=== PATIENT | female | born 1930 | race Caucasian/White ===

== ENCOUNTER 2018-03-20 15:08 | Emergency (ER) | payer MEDICARE, BC ==
[~2018-03-20] VITALS: Ht 160 cm; Wt 54.0 kg
[2018-03-20 15:20] VITALS: BP 125/42; PULSE 92; RESP 16; TEMP 97.9; O2SAT 97
--- NOTE | 2018-03-20 15:33 | PD ---
HPI Chief Complaint: Head Injury Time Seen by Provider: 15:24 Travel History International Travel<30 days: No Contact w/Intl Traveler<30days: No Traveled to known affect area: No History of Present Illness HPI 87-year-old female presents to the emergency department with her son for evaluation after a fall that occurred today. Patient has history of vascular dementia and has short-term memory loss. Patient lives in an [place]. Her son states that the fall was not witnessed. The patient cannot elaborate on how the fall happened. She does have history of gait instability and weakness. Patient believes she lost her balance and fell, but cannot give any details surrounding her fall. Patient has hematoma to the left forehead. She denies any headache. No neck pain or back pain. No chest pain or abdominal pain. No vomiting. Her son states that she is not on anticoagulants. She is currently on Bactrim for urinary tract infection. Her son at bedside states that she is acting her normal self. Patient knows the president, her name, and that she is at the hospital, but cannot recall the year or month. Patient states that this is her norm. She has been ambulatory with her walker since the fall. No exacerbating or alleviating factors. Moderate severity. PFSH Past Medical History ?: Not Social History Alcohol Use: No Tobacco Use: No Substance Use: No Allergies-Medications (Allergen,Severity, Reaction): Coded Allergies: No Known Allergies (Verified Allergy, Unknown, 03/20/18) Reported Meds & Prescriptions Reported Meds & Active Scripts Active Reported Cyanocobalamin Inj (Cyanocobalamin) 1,000 Mcg/Ml Inj 1,000 Mcg SQ Q30D Lipitor (Atorvastatin Calcium) 40 Mg Tab 40 Mg PO HS Vitamin B-12 (Cyanocobalamin) 1,000 Mcg Tab 1,000 Mcg PO DAILY Ritalin IR (Methylphenidate HCl) 20 Mg Tab 20 Mg PO BIDAC Cozaar (Losartan Potassium) 50 Mg Tab 50 Mg PO DAILY Bactrim DS (Sulfamethoxazole-Trimethoprim) 800-160 Mg Tab 1 Tab PO BID Aspirin 81 Mg Chew 81 Mg CHEW DAILY Review of Systems Except as stated in HPI: all other systems reviewed are Neg Physical Exam Narrative GENERAL: Well-nourished, well-developed elderly female patient, ambulatory with her walker. Afebrile. SKIN: Focused skin assessment warm/dry. Patient has hematoma to left forehead. HEAD: Normocephalic. ENT: Mucosa pink and moist. No erythema or exudates. No uvular edema. No uvular , palatal, or tonsillar deviation. Airway patent. Nasal turbinates appear normal without nasal blood, purulent drainage or septal hematoma. Bilateral tympanic membranes clear without erythema or perforation. EYES: No scleral icterus. No injection or drainage. PERRLA. NECK: Supple, trachea midline. No JVD or lymphadenopathy. CARDIOVASCULAR: Regular rate and rhythm without murmurs, gallops, or rubs. RESPIRATORY: Breath sounds equal bilaterally. No accessory muscle use. Lung sounds are clear to auscultation. GASTROINTESTINAL: Abdomen soft, non-tender, nondistended. MUSCULOSKELETAL: No cyanosis, or edema. No bony point tenderness. BACK: Nontender without obvious deformity. No CVA tenderness. No midline spinal tenderness. Data Data Last Documented VS Vital Signs Date Time Temp Pulse Resp B/P (MAP) Pulse Ox O2 Delivery O2 Flow Rate FiO2 03/20/18 15:57 97 Room Air 03/20/18 15:20 97.9 92 16 125/42 (69) Orders Orders Complete Blood Count With Diff (03/20/18 15:32) Comprehensive Metabolic Panel (03/20/18 15:32) Act Partial Throm Time (Ptt) (03/20/18 15:32) Prothrombin Time / Inr (Pt) (03/20/18 15:32) Urinalysis - C+S If Indicated (03/20/18 15:32) Ct Brain W/O Iv Contrast(Rout) (03/20/18 15:32) Ecg Monitoring (03/20/18 15:32) Iv Access Insert/Monitor (03/20/18 15:32) Oximetry (03/20/18 15:32) Sodium Chloride 0.9% Flush (Ns Flush) (03/20/18 15:45) Labs Laboratory Tests Test 03/20/18 16:10 03/20/18 16:15 White Blood Count 9.1 TH/MM3 Red Blood Count 4.05 MIL/MM3 Hemoglobin 12.7 GM/DL Hematocrit 36.9 % Mean Corpuscular Volume 91.2 FL Mean Corpuscular Hemoglobin 31.3 PG Mean Corpuscular Hemoglobin Concent 34.3 % Red Cell Distribution Width 13.5 % Platelet Count 241 TH/MM3 Mean Platelet Volume 8.8 FL Neutrophils (%) (Auto) 79.3 % Lymphocytes (%) (Auto) 14.5 % Monocytes (%) (Auto) 4.2 % Eosinophils (%) (Auto) 1.4 % Basophils (%) (Auto) 0.6 % Neutrophils # (Auto) 7.2 TH/MM3 Lymphocytes # (Auto) 1.3 TH/MM3 Monocytes # (Auto) 0.4 TH/MM3 Eosinophils # (Auto) 0.1 TH/MM3 Basophils # (Auto) 0.1 TH/MM3 CBC Comment DIFF FINAL Differential Comment Prothrombin Time 10.4 SEC Prothromb Time International Ratio 1.0 RATIO Activated Partial Thromboplast Time 23.7 SEC Blood Urea Nitrogen 23 MG/DL Creatinine 1.40 MG/DL Random Glucose 113 MG/DL Total Protein 6.7 GM/DL Albumin 3.2 GM/DL Calcium Level 8.7 MG/DL Alkaline Phosphatase 140 U/L Aspartate Amino Transf (AST/SGOT) 33 U/L Alanine Aminotransferase (ALT/SGPT) 53 U/L Total Bilirubin 0.3 MG/DL Sodium Level 141 MEQ/L Potassium Level 4.7 MEQ/L Chloride Level 108 MEQ/L Carbon Dioxide Level 26.5 MEQ/L Anion Gap 7 MEQ/L Estimat Glomerular Filtration Rate 36 ML/MIN Urine Collection Type CLEAN CATCH Urine Color YELLOW Urine Turbidity SL CLOUDY Urine pH 5.5 Urine Specific [place] GREATER/EQUAL 1.030 Urine Protein NEG mg/dL Urine Glucose (UA) NEG mg/dL Urine Ketones NEG mg/dL Urine Occult Blood TRACE Urine Nitrite NEG Urine Bilirubin NEG Urine Urobilinogen 0.2 MG/DL Urine Leukocyte Esterase NEG Urine RBC 4-9 /hpf Urine WBC 0-2 /hpf Urine Squamous Epithelial Cells > 8 /hpf Urine Bacteria FEW /hpf Microscopic Urinalysis Comment CULT NOT INDICATED Urine Collection Time 16:15 [facility] Medical Decision Making Medical Screen Exam Complete: Yes Emergency Medical Condition: Yes Medical Record Reviewed: Yes Interpretation(s) Last Impressions Head CT 03/20/18 4593 Signed Impressions: Service Date/Time: Thursday, March 20, 2018 15:54 - CONCLUSION: 1. No acute intracranial abnormality. 2. Left frontal scalp swelling. 3. Suspected small vessel ischemic change in the white matter. A Guy Merrill MD Differential Diagnosis Closed head injury versus intracranial hemorrhage versus skull fracture versus electrolyte abnormality versus UTI Narrative Course 87-year-old female presents to the emergency department for evaluation of a fall that occurred today. The fall was not witnessed and patient cannot recall details surrounding the fall. However, patient does have history of gait instability. IV access is obtained. CBC, CMP, PTT, PT/INR, UA ordered and pending. CT the brain is ordered and pending. CBC shows no acute abnormality. CMP shows BUN 23, creatinine 1.40, hyperglycemia 113, no acute abnormality. Coags show no acute abnormality. UA is negative for acute infection. CT the brain shows no acute intracranial abnormality. Patient stable for discharge back to her [facility]. She is return for any acute worsening of symptoms. The patient was discharged in stable condition with instructions, including return instructions and follow up instructions. Diagnosis Primary Impression: Closed head injury Qualified Codes: S09.90XA - Unspecified injury of head, initial encounter Referrals: Primary Care Physician call for appointment Patient Instructions: General Instructions, Head Injury (ED) Additional Instructions: [id number] Tylenol every 4 hours as needed for pain. Ice to forehead for 20 minutes 4-5 times daily. Follow-up with a primary care physician. Return to the emergency department for any acute worsening of symptoms. Med/Other Pt SpecificInfo: No Change to Meds Disposition: 01 DISCHARGE HOME Condition: Stable Анна Garay Mar 20, 2018 15:33
[2018-03-20] MEDS ORDERED: SODIUM CHLORIDE 0.9% FLUSH 10 ML FLUSH IVF PRN (15:45)
[2018-03-20] MEDS ORDERED: BACT800T5 PO (15:53)
[2018-03-20] MEDS ORDERED: RITA20TA PO (15:53)
[2018-03-20] MEDS ORDERED: ASPI-516 CHEW (15:53)
[2018-03-20] MEDS ORDERED: COZA50TA PO (15:53)
[2018-03-20] MEDS ORDERED: CYAN1000P SQ (15:56)
[2018-03-20] MEDS ORDERED: VITA10002 PO (15:56)
[2018-03-20] MEDS ORDERED: LIPI40TA PO (15:56)
[2018-03-20 15:57] VITALS: O2SAT 97
[2018-03-20 16:31] LABS: AUTOMATED NEUTROPHIL # 7.2 TH/MM3 (1.8-7.7); BASOPHIL # 0.1 TH/MM3 (0-0.2); BASOPHIL % 0.6 % (0.0-2.0); EOSINOPHIL # 0.1 TH/MM3 (0-0.4); EOSINOPHIL % 1.4 % (0.0-4.0); HEMATOCRIT 36.9 % (35.0-46.0); HEMOGLOBIN 12.7 GM/DL (11.6-15.3); LYMPH % 14.5 % (9.0-44.0); LYMPHOCYTE # 1.3 TH/MM3 (1.0-4.8); MEAN CELL VOLUME 91.2 FL (80.0-100.0); MEAN CORPUSCULAR HEMOGLOBIN 31.3 PG (27.0-34.0); MEAN CORPUSCULAR HGB CONC 34.3 % (32.0-36.0); MEAN PLATELET VOLUME 8.8 FL (7.0-11.0); MONO % 4.2 % (0.0-8.0); MONOCYTE # 0.4 TH/MM3 (0-0.9); NEUT % 79.3 % (16.0-70.0); PLATELET COUNT 241 TH/MM3 (150-450); RED BLOOD COUNT 4.05 MIL/MM3 (4.00-5.30); RED CELL DISTRIBUTION WIDTH 13.5 % (11.6-17.2); WHITE BLOOD COUNT 9.1 TH/MM3 (4.0-11.0)
--- NOTE | 2018-03-20 16:34 | RADRPT ---
EXAM DATE/TIME: 03/20/2018 15:54 [facility] COMPARISON: No previous studies available for comparison. INDICATIONS : Fall with bruising left forhead. RADIATION DOSE: 43.78 CTDIvol (mGy) MEDICAL HISTORY : Dementia. SURGICAL HISTORY : None. ENCOUNTER: Initial ACUITY: 1 day PAIN SCALE: 5/10 LOCATION: Right cranial TECHNIQUE: Multiple contiguous axial images were obtained of the head. Using automated exposure control and adj ustment of the mA and/or kV according to patient size, radiation dose was kept as low as reasonably a chievable to obtain optimal diagnostic quality images. DICOM format image data is available electro nically for review and comparison. FINDINGS: CEREBRUM: The ventricles are normal for age. No evidence of midline shift, mass lesion, hemorrhage or acute in farction. There is decreased density in the periventricular white matter. No extra-axial fluid collec tions are seen. POSTERIOR FOSSA: The cerebellum and brainstem are intact. The 4th ventricle is midline. The cerebellopontine angle i s unremarkable. EXTRACRANIAL: The visualized portion of the orbits is intact. SKULL: The calvaria is intact. No evidence of skull fracture. There is focal soft tissue swelling in the le ft frontal scalp region. CONCLUSION: 1. No acute intracranial abnormality. 2. Left frontal scalp swelling. 3. Suspected small vessel ischemic change in the white matter. Meg Merrill MD on March 20, 2018 at 16:25 Board Certified Radiologist. This report was verified electronically.
[2018-03-20 16:40] LABS: CHLORIDE 108 MEQ/L (98-107); SODIUM (NA) 141 MEQ/L (136-145)
[2018-03-20 16:43] LABS: CALCIUM 8.7 MG/DL (8.5-10.1)
[2018-03-20 16:43] LABS: BILIRUBIN, URINE NEG (NEG); BLOOD, URINE TRACE (NEG); GLUCOSE,URINE NEG (NEG); KETONE, URINE NEG (NEG); NITRITE,URINE NEG (NEG); PH, URINE 5.5 (5.0-8.5); URINE COLOR YELLOW (YELLW/STRAW); URINE LEUKOCYTE ESTERASE NEG (NEG)
[2018-03-20 16:44] LABS: ALBUMIN 3.2 GM/DL (3.4-5.0); BICARBONATE 26.5 MEQ/L (21.0-32.0); BLOOD UREA NITROGEN 23 MG/DL (7-18); GLUCOSE,RANDOM 113 MG/DL (74-106)
[2018-03-20 16:46] LABS: ALT (GPT) 53 U/L (10-53); PROTHROMBIN TIME - PATIENT 10.4 SEC (9.8-11.6)
[2018-03-20 16:47] LABS: AST (GOT) 33 U/L (15-37); GLOMERULAR FILTRATION RATE 36 ML/MIN (>89)
[2018-03-20 16:48] LABS: TOTAL BILIRUBIN ADULT 0.3 MG/DL (0.2-1.0); TOTAL PROTEIN 6.7 GM/DL (6.4-8.2)
[2018-03-20 16:50] LABS: ALKALINE PHOSPHATASE 140 U/L (45-117)
[2018-03-20 16:55] LABS: BACTERIA, URINE FEW /hpf; SQUAMOUS EPITHELIAL CELL URINE > 8 /hpf (0-5); WBC, URINE 0-2 /hpf (0-5)
== END 2018-03-20 17:29 | disposition home or self-care (01) ==
LOC: PHEFT 15:08
DX: S09.90XA Unspecified injury of head, initial encounter (principal); S00.83XA Contusion of other part of head, initial encounter; W19.XXXA Unspecified fall, initial encounter; Y92.099 Unspecified place in other non-institutional residence as the place of occurrence of the external cause; N39.0 Urinary tract infection, site not specified; F01.50 Vascular dementia, unspecified severity, without behavioral disturbance, psychotic disturbance, mood disturbance, and anxiety; R26.81 Unsteadiness on feet
CPT/HCPCS: 70450; 80053; 81001; 85025; 85610; 85730; 99283

== ENCOUNTER 2018-07-17 20:57 | Observation (INO) ==
--- NOTE | 2018-07-17 21:23 | ED ---
HPI General Chief Complaint: Syncope Stated Complaint: Evac/[facility]/Syncope Time Seen by Provider: 07/17/18 21:10 Source: EMS Mode of arrival: EMS Limitations: no limitations History of Present Illness HPI narrative: 88-year-old female presents to the emergency department from assisted living facility by EMS transport after witnessed syncopal episode. Patient has been in her usual state of fair health with history of hypertension and vascular dementia. Patient was with assisted-living facility nursing staff receiving a shower and during the shower collapsed with a syncopal episode without associated trauma. Patient was assisted to the floor and was unresponsive but breathing with pulse for approximately 4-5 minutes during which time she was noted to have 2 watery loose brown diarrheal stools and no seizure activity. Patient was moved from the shower to her bed where paramedics found her with decreased level of responsiveness and hypotensive with a blood pressure of 70 systolic. Patient was found to be in a sinus rhythm on monitoring blood sugar was 118. No seizure activity witnessed. Patient was given a bolus of normal saline with improved level of mentation and upon arrival to the emergency department GCS is 15. Patient here denies headache visual disturbance difficulty with speech or swallowing neck pain chest pain shortness of breath nausea abdominal pain back pain upper or lower extremity numbness tingling or weakness. Per paramedics [place] reported no recent illness or febrile illness. Patient is currently not taking any antibiotic. Patient did not have diarrhea prior to syncopal episode. Patient's had no GI complaints no nausea or vomiting. Patient's had no other symptoms such as respiratory illness symptoms or urinary symptoms. No prior history of similar episode. No identified exacerbating or alleviating factors. MD complaint: loss of consciousness and collapsed Onset (ago): minute(s) Duration of episode: 5 -: minutes(s) Description of event: incontinence Prodromal symptoms: none Witnessed: yes - by bystander Context: during exertion (showering) Injuries sustained associated with event: none Current symptoms: none and back to baseline History: other (Hypertension dementia) Treatments prior to arrival: IV fluids Related Data Home Medications Medication Instructions Recorded Confirmed aspirin [Aspirin Low Dose] 81 mg PO DAILY 07/17/18 07/17/18 atorvastatin [Lipitor] 40 mg PO DAILY 07/17/18 07/17/18 cyanocobalamin (vitamin B-12) 1,000 mcg PO DAILY 07/17/18 07/17/18 [Vitamin B-12] losartan [Cozaar] 50 mg PO DAILY 07/17/18 07/17/18 methylphenidate HCl [Ritalin] 20 mg PO BID 07/17/18 07/17/18 Allergies Allergy/AdvReac Type Severity Reaction Status Date / Time No Known Allergies Allergy Unknown NONE Uncoded 07/17/18 21:03 Review of Systems ROS: all other systems reviewed are negative [facility] Medical History Medical History Cardiovascular disease (Acute) High cholesterol (Acute) Hypertension (Acute) Urinary tract infection (Acute) Vascular dementia (Acute) Surgical History Surgical History History of appendectomy (Acute) Social History Social History Substance History: No History of Abuse Smoking Status: Former smoker How Often Do You Have a Drink Containing Alcohol: Never Recent Travel in [facility] within the Last 8 Weeks: No Recent Out of Country Travel within the Last 8 Weeks: No Immunization History Tetanus Immunization: Unsure Hx Influenza Vaccine This Season: Yes Exam Narrative Exam Narrative: GENERAL: Well-developed well-nourished elderly thin female in no acute distress no respiratory distress awake GCS 15 SKIN: Focused skin assessment warm/dry. HEAD: Atraumatic. Normocephalic. EYES: Pupils equal and round. No scleral icterus. No injection or drainage. ENT: No nasal bleeding or discharge. Mucous membranes pink and moist. NECK: Trachea midline. No JVD. CARDIOVASCULAR: Regular rate and rhythm. No murmur appreciated. RESPIRATORY: No accessory muscle use. Clear to auscultation. Breath sounds equal bilaterally. GASTROINTESTINAL: Abdomen soft, non-tender, nondistended. Hepatic and splenic margins not palpable. MUSCULOSKELETAL: No obvious deformities. No clubbing. No cyanosis. No edema. NEUROLOGICAL: Awake and alert. No obvious cranial nerve deficits. Motor grossly within normal limits. No limb ataxia. No pronator drift. Sensory exam grossly intact. Normal speech. PSYCHIATRIC: Appropriate mood and affect; insight and judgment normal. Course Initial Documented Vital Signs Pulse Rate 83 07/17/18 21:04 Respiratory Rate 16 07/17/18 21:04 Blood Pressure 139/78 07/17/18 21:04 Pulse Oximetry 98 07/17/18 21:04 Last Documented Vital Signs Temperature 97.6 F 07/17/18 21:10 Pulse Rate 70 07/17/18 23:13 Respiratory Rate 16 07/17/18 23:13 Blood Pressure 145/66 H 07/17/18 23:13 Pulse Oximetry 97 07/17/18 23:13 Critical Care Time Critical Care Time: Yes Total Critical Care Time: 30 Attestation: Aggregate critical care time was 30 minutes. Time to perform other separately billable procedures was not included in the critical care time. My time did not include minutes spent treating any other patients simultaneously or on activities that did not directly contribute to the patient's treatment. The services I provided to this patient were to treat and/or prevent clinically significant deterioration that could result in: Arrhythmia, sepsis, I provided critical care services requiring my management, as noted below: Chart data review, documentation time, medication orders and management, vital sign assessments/reviewing monitor data, ordering and reviewing lab tests, ordering and interpreting/reviewing x-rays and diagnostic studies, care of the patient and discussion of the patient with the admitting physicians. Medical Decision Making MDM Narrative Medical decision making narrative: 88-year-old female with history of hypertension dyslipidemia dementia with witnessed syncopal episode approximately 5 minutes of duration without seizure activity presents now for further evaluation with EMS glucose of 118 initial blood pressure 70 systolic now within normal range after 1500 mL bolus of normal saline. EKG is sinus rhythm rate [address] elevation injury pattern or ectopy artifact is present at baseline CT imaging reveals no acute abnormality chest x-ray no lobar infiltrate EKG no acute injury pattern cardiac enzymes are found to be in normal range patient is identified to have elevated lactic acid of three-point 5 repeat lactic acid pending patient given additional bolus of normal saline and after blood cultures presumptive IV antibiotic with cefepime urinalysis catheterized specimen cultures not indicated few bacteria otherwise normal. Patient will be admitted for observation to medicine service per Dr. Pickens for syncope of unclear etiology. Per family patient is a DNR, this is shared with the admitting MD. Medical Screen Exam Complete: Yes Emergency Medical Condition: Yes Differential Diagnosis Differential Diagnosis: Syncope, arrhythmia, CVA, ACS, RI, CVA, sepsis, anemia Medical Records Medical records reviewed: Yes I reviewed the patient's medical records. Lab Data Result diagrams: 07/17/18 21:15 07/17/18 21:15 Lab Results 07/17/18 07/17/18 07/17/18 Range/Units 21:15 21:15 21:15 WBC 8.9 (4.0-11.0) th/mm3 RBC 4.42 (4.00-5.30) mil/mm3 Hgb 13.5 (11.6-15.3) gm/dL Hct 41.1 (35.0-46.0) % MCV 93.0 (80.0-100.0) fL MCH 30.6 (27.0-34.0) pg MCHC 32.9 (32.0-36.0) % RDW 13.3 (11.6-17.2) % Plt Count 204 (150-450) th/mm3 MPV 8.5 (7.0-11.0) fL Neut % (Auto) 77.5 H (16.0-70.0) % Lymph % (Auto) 13.2 (9.0-44.0) % [place] % (Auto) 6.2 (0.0-8.0) % Eos % (Auto) 2.5 (0.0-4.0) % Baso % (Auto) 0.6 (0.0-2.0) % Neut # (Auto) 6.9 (1.8-7.7) th/mm3 Lymph # (Auto) 1.2 (1.0-4.8) th/mm3 [place] # (Auto) 0.6 (0.0-0.9) th/mm3 Eos # (Auto) 0.2 (0.0-0.4) th/mm3 Baso # (Auto) 0.1 (0.0-0.2) th/mm3 WBC Differential . Differential Comment Auto diff final PT 11.2 (9.8-11.6) sec INR 1.1 Ratio APTT 24.8 (24.3-30.1) sec Sodium 146 H (136-145) meq/L Potassium 3.4 L (3.5-5.1) meq/L Chloride 112 H (98-107) meq/L Carbon Dioxide 25.3 (21.0-32.0) meq/L Anion Gap 9 (5-15) meq/L BUN 16 (7-18) mg/dL Creatinine 0.84 (0.50-1.00) mg/dL Estimated GFR 64 L (>89) mL/min Random Glucose 124 H (74-106) mg/dL Lactic Acid (0.4-2.0) mmol/L Calcium 7.5 L (8.5-10.1) mg/dL Magnesium 1.6 (1.5-2.5) mg/dL Total Bilirubin 0.4 (0.2-1.0) mg/dL AST 33 (15-37) U/L ALT 46 (10-53) U/L Alkaline Phosphatase 132 H (45-117) U/L Troponin I 0.02 (0.02-0.05) ng/mL Total Protein 6.3 L (6.4-8.2) g/dL Albumin 3.1 L (3.4-5.0) g/dL Urine Color (Yellw/Straw) Urine Clarity (Clear) Urine pH (5.0-8.5) Ur Specific [place] (1.002-1.035) Urine Protein (Neg-Trace) mg/dL Urine Glucose (UA) (Negative) mg/dL Urine Ketones (Negative) mg/dL Urine Occult Blood (Negative) Urine Nitrate (Negative) Urine Bilirubin (Negative) Urine Urobilinogen (Less than 2) mg/dL Ur Leukocyte Esterase (Negative) Urine RBC (0-3) /hpf Urine WBC (0-5) /hpf Ur Squamous Epith Cells (0-5) /hpf Amorphous Sediment (None) /hpf Urine Bacteria (None) /hpf Hyaline Casts (0-3) /lpf Urine Mucus (Occasional) /lpf Micro UA Comment Ur Microscopic Review Urine Culture Comments Blood Type Blood Type Recheck Antibody Screen 07/17/18 07/17/18 07/17/18 Range/Units 21:15 21:15 21:40 WBC (4.0-11.0) th/mm3 RBC (4.00-5.30) mil/mm3 Hgb (11.6-15.3) gm/dL Hct (35.0-46.0) % MCV (80.0-100.0) fL MCH (27.0-34.0) pg MCHC (32.0-36.0) % RDW (11.6-17.2) % Plt Count (150-450) th/mm3 MPV (7.0-11.0) fL Neut % (Auto) (16.0-70.0) % Lymph % (Auto) (9.0-44.0) % [place] % (Auto) (0.0-8.0) % Eos % (Auto) (0.0-4.0) % Baso % (Auto) (0.0-2.0) % Neut # (Auto) (1.8-7.7) th/mm3 Lymph # (Auto) (1.0-4.8) th/mm3 [place] # (Auto) (0.0-0.9) th/mm3 Eos # (Auto) (0.0-0.4) th/mm3 Baso # (Auto) (0.0-0.2) th/mm3 WBC Differential Differential Comment PT (9.8-11.6) sec INR Ratio APTT (24.3-30.1) sec Sodium (136-145) meq/L Potassium (3.5-5.1) meq/L Chloride (98-107) meq/L Carbon Dioxide (21.0-32.0) meq/L Anion Gap (5-15) meq/L BUN (7-18) mg/dL Creatinine (0.50-1.00) mg/dL Estimated GFR (>89) mL/min Random Glucose (74-106) mg/dL Lactic Acid 3.5 H (0.4-2.0) mmol/L Calcium (8.5-10.1) mg/dL Magnesium (1.5-2.5) mg/dL Total Bilirubin (0.2-1.0) mg/dL AST (15-37) U/L ALT (10-53) U/L Alkaline Phosphatase (45-117) U/L Troponin I (0.02-0.05) ng/mL Total Protein (6.4-8.2) g/dL Albumin (3.4-5.0) g/dL Urine Color Yellow (Yellw/Straw) Urine Clarity Hazy H (Clear) Urine pH 7.0 (5.0-8.5) Ur Specific [place] 1.005 (1.002-1.035) Urine Protein Negative (Neg-Trace) mg/dL Urine Glucose (UA) Negative (Negative) mg/dL Urine Ketones Negative (Negative) mg/dL Urine Occult Blood Small H (Negative) Urine Nitrate Negative (Negative) Urine Bilirubin Negative (Negative) Urine Urobilinogen Less than 2 (Less than 2) mg/dL Ur Leukocyte Esterase Negative (Negative) Urine RBC Less than 1 (0-3) /hpf Urine WBC 1 (0-5) /hpf Ur Squamous Epith Cells <1 (0-5) /hpf Amorphous Sediment Rare H (None) /hpf Urine Bacteria Few H (None) /hpf Hyaline Casts 1 (0-3) /lpf Urine Mucus Few H (Occasional) /lpf Micro UA Comment Cath-culture not ind Ur Microscopic Review Not Reportable Urine Culture Comments Cath-cult not ind Blood Type O Negative Blood Type Recheck Required Antibody Screen Negative Imaging Data Radiologist's impression: Head CT 07/17/18 21:10 CONCLUSION: 1. Central atrophy with enlargement of the ventricles and chronic ischemic white matter changes. 2. Stable evaluation without evidence of acute infarct, hemorrhage, mass or edema. . Chest X-Ray 07/17/18 21:11 CONCLUSION: No evidence of acute cardiopulmonary process. ECG Data EKG Prior to Arrival: Yes Attestation: I personally reviewed and interpreted this ECG as follows: Prior ECG tracings: not available for review Interpretation: EKG: sinus rhythm rate [address] elevation injury pattern or ectopy noted artifact is present Discharge Plan Physicians Team ED Provider: Nadia Mckeon Primary Care Provider: Jimbo Romero Rxs /Orders / Referrals /Forms Prescriptions: No Action losartan [Cozaar] 50 mg Tablet 50 mg PO DAILY RF: 0 atorvastatin [Lipitor] 40 mg Tablet 40 mg PO DAILY RF: 0 methylphenidate HCl [Ritalin] 20 mg Tablet 20 mg PO BID RF: 0 aspirin [Aspirin Low Dose] 81 mg Tablet,Delayed Release (Dr/Ec) 81 mg PO DAILY RF: 0 cyanocobalamin (vitamin B-12) [Vitamin B-12] 1,000 mcg Tablet Extended Release 1,000 mcg PO DAILY RF: 0 Discharge Interventions Interventions: Vital Signs Last Done: 07/17/18 23:13 Status ED Status: With Doctor
--- NOTE | 2018-07-17 21:37 | CT ---
EXAM DATE: 07/17/2018 9:30 PM EDT AGE/SEX: 88 years / Female INDICATIONS: Syncopal episode. CLINICAL DATA: This is the patient's initial encounter. Patient reports that signs and symptoms have been present for 1 day and indicates a pain score of 0/10. MEDICAL/SURGICAL HISTORY: Cardiovascular disease. Dementia. Hypertension. Appendectomy. RADIATION DOSE: 56.35 CTDI (mGy) COMPARISON: [facility], CT BRAIN W/O CONTRAST, 03/20/2018. . TECHNIQUE: CT of the head without contrast. Using automated exposure control and adjustment of the mA and/or kV according to patient size, radiation dose was kept as low as reasonably achievable to ob tain optimal diagnostic quality images. DICOM format image data is available electronically for revi ew and comparison. FINDINGS: Cerebrum: Ventricular enlargement is stable. Again noted is significant periventricular hypodensity. No evidence of midline shift, mass lesion, hemorrhage or acute infarction. No extraaxial fluid alistair ections are seen. Posterior Fossa: The cerebellum and brainstem are intact. The 4th ventricle is midline. The cerebe llopontine angle is unremarkable. Extracranial: The visualized portion of the orbits is intact. Skull: The calvaria is intact. No evidence of skull fracture. CONCLUSION: 1. Central atrophy with enlargement of the ventricles and chronic ischemic white matter changes. 2. Stable evaluation without evidence of acute infarct, hemorrhage, mass or edema. . Electronically signed by: Vahid Quinonez MD 07/17/2018 9:36 PM EDT
--- NOTE | 2018-07-17 21:37 | XR ---
EXAM DATE: 07/17/2018 9:28 PM EDT AGE/SEX: 88 years / Female INDICATIONS: Syncope. Patient passed out today. CLINICAL DATA: This is the patient's initial encounter. Patient reports that signs and symptoms have been present for 1 day and indicates a pain score of 0/10. MEDICAL/SURGICAL HISTORY: None. None. COMPARISON: No prior exams available for comparison. FINDINGS: A single AP view of the chest demonstrates the lungs to be symmetrically aerated without evidence of mass, infiltrate or effusion. The cardiomediastinal contours are unremarkable. Osseous structures a re intact. CONCLUSION: No evidence of acute cardiopulmonary process. Electronically signed by: Vahid Quinonez MD 07/17/2018 9:36 PM EDT
[2018-07-17 22:21] LABS: Baso # (Auto) 0.1 th/mm3 (0.0-0.2); Baso % (Auto) 0.6 % (0.0-2.0); Eos # (Auto) 0.2 th/mm3 (0.0-0.4); Eos % (Auto) 2.5 % (0.0-4.0); Hematocrit 41.1 % (35.0-46.0); Hemoglobin 13.5 gm/dL (11.6-15.3); Lymph # (Auto) 1.2 th/mm3 (1.0-4.8); Lymph % (Auto) 13.2 % (9.0-44.0); Mean Corpuscular HGB Conc 32.9 % (32.0-36.0); Mean Corpuscular Hemoglobin 30.6 pg (27.0-34.0); Mean Platelet Volume 8.5 fL (7.0-11.0); Mono # (Auto) 0.6 th/mm3 (0.0-0.9); Mono % (Auto) 6.2 % (0.0-8.0); Neut # (Auto) 6.9 th/mm3 (1.8-7.7); Neut % (Auto) 77.5 % (16.0-70.0); Platelet Count 204 th/mm3 (150-450); Red Blood Count 4.42 mil/mm3 (4.00-5.30); Red Cell Distribution Width 13.3 % (11.6-17.2); White Blood Count 8.9 th/mm3 (4.0-11.0)
[2018-07-17 22:32] LABS: Activated Partial Thrombo Time 24.8 sec (24.3-30.1); INR 1.1 Ratio; Prothrombin Time 11.2 sec (9.8-11.6)
[2018-07-17 22:38] LABS: Amorphous Sediment,Urine Rare /hpf; Bacteria,Urine Few /hpf; Bilirubin,Urine Negative (Negative); Clarity,Urine Hazy (Clear); Color,Urine Yellow (Yellw/Straw); Glucose,Urine (UA) Negative (Negative); Hyaline Casts,Urine 1 /lpf (0-3); Leukocyte Esterase,Urine Negative (Negative); Mucus,Urine Few /lpf (Occasional); Nitrite,Urine Negative (Negative); Specific Gravity,Urine 1.005 (1.002-1.035); Squamous Epithelial Cell,Urine <1 /hpf (0-5)
[2018-07-17 22:48] LABS: Albumin 3.1 g/dL (3.4-5.0); Anion Gap 9 meq/L (5-15); Aspartate Aminotransferase 33 U/L (15-37); Blood Urea Nitrogen 16 mg/dL (7-18); Calcium 7.5 mg/dL (8.5-10.1); Carbon Dioxide 25.3 meq/L (21.0-32.0); Chloride 112 meq/L (98-107); Glomerular Filtration Rate 64 mL/min (>89); Glucose,Random 124 mg/dL (74-106); Magnesium 1.6 mg/dL (1.5-2.5); Potassium 3.4 meq/L (3.5-5.1); Sodium 146 meq/L (136-145)
[2018-07-17 22:49] LABS: Alanine Aminotransferase 46 U/L (10-53)
[2018-07-17 22:51] LABS: Alkaline Phosphatase 132 U/L (45-117); Total Protein 6.3 g/dL (6.4-8.2); Troponin I 0.02 ng/mL (0.02-0.05)
[2018-07-17] MEDS ORDERED: Bisacodyl 10 MG Supp RECTAL PRN (23:32)
[2018-07-17] MEDS ORDERED: Acetaminophen 325 MG Tablet PO PRN (23:32)
--- NOTE | 2018-07-17 23:49 | P.HPIM ---
History of Present Illness Primary Care Physician: Jimbo Romero MD History of Present Illness: This is an 88-year-old DNR female with a PMH of HTN, Hyperlipidemia, CAD and Dementia who was sent to the ER from [facility] after syncopal event. Per report, pt had syncopal episode while receiving a shower by nursing staff, no seizure activity noted. Upon EMS arrival, noted to have BP 70's systolic, s/p IVF w/ improvement. Pt w/ no recollection of events, does not believe she had dizziness/lightheadedness prior to event. Denies chest pain. On arrival, BP 139/78, HR 83, O2 sat 98% on RA, Afebrile. Chemistry unremarkable. INR 1.1. Na 146. K+ 3.4. Lactic Acid 3.5. Troponin negative. UA negative for UTI. CT Head with central atrophy, enlargement of ventricles and chronic ischemic changes, stable. CXR with no acute findings. Patient currently without any complaints. - Diagnosis (1) Syncope (2) Lactic acidosis (3) DNR (do not resuscitate) Review of Systems PAST FAMILY HISTORY: Reviewed. No h/o DM or CAD All other systems reviewed negative except as stated in HPI PMFSH - History History Provided By: Patient - Medical History Medical History: Medical History (Last Reviewed 07/17/18 @ 21:20 by Nadia Mckeon MD) Cardiovascular disease High cholesterol Hypertension Urinary tract infection Vascular dementia - Surgical History Surgical History: Surgical History (Last Reviewed 07/17/18 @ 21:20 by Nadia Mckeon MD) History of appendectomy - Tobacco History Tobacco Use In Past 30 Days: No Smoking Status: Former smoker - Alcohol History How Often Do You Have a Drink Containing Alcohol: Never - Substance Use History Substance History: No History of Abuse - Travel History Recent Travel in the [place] Within the Last 8 Weeks: No Recent Travel Out of the Country Within the Last 8 Weeks: No - Immunization History Tetanus Immunization: Unsure Hx Influenza Vaccine This Season: Yes Medications and Allergies Active Medications: Active Medications Acetaminophen (Tylenol) 650 mg PO Q4H PRN PRN Reason: Temp > 100.4 Al Hydroxide/Mg Hydroxide (Milk Of Magnesia Liq) 30 ml PO Q12H PRN PRN Reason: Mild Constipation Bisacodyl (Dulcolax Supp) 10 mg RECTAL DAILY PRN PRN Reason: SEVERE CONSITIPATION Sodium Chloride (Ns Inj) 1,000 mls @ 100 mls/hr IV.CONT .Q10H ASHLEY Lactulose (Lactulose Liq) 30 ml PO DAILY PRN PRN Reason: SEVERE CONSITIPATION Ondansetron HCl (Zofran Inj) 4 mg IV.PUSH Q6H PRN PRN Reason: NAUSEA OR VOMITING Senna/Docusate Sodium (Amada-Colace) 1 tab PO BID [facility] Sennosides (Senokot) 17.2 mg PO Q12H PRN PRN Reason: Moderate Constipation Allergies Allergy/AdvReac Type Severity Reaction Status Date / Time No Known Allergies Allergy Unknown NONE Uncoded 07/17/18 21:03 Home Medications Medication Instructions Recorded Confirmed Type aspirin [Aspirin Low Dose] 81 mg PO DAILY 07/17/18 07/17/18 History atorvastatin [Lipitor] 40 mg PO DAILY 07/17/18 07/17/18 History cyanocobalamin (vitamin B-12) 1,000 mcg PO DAILY 07/17/18 07/17/18 History [Vitamin B-12] losartan [Cozaar] 50 mg PO DAILY 07/17/18 07/17/18 History methylphenidate HCl [Ritalin] 20 mg PO BID 07/17/18 07/17/18 History Exam Vital signs: Vital Signs 07/17/18 21:04 07/17/18 21:10 07/17/18 23:13 Temperature 97.6 F Pulse Rate 83 82 70 Respiratory Rate 16 16 Blood Pressure 139/78 145/66 H Pulse Oximetry 98 97 Intake & Output 07/17/18 07/17/18 07/18/18 06:59 18:59 06:59 Weight 120 kg Narrative: PE: GENERAL: Extremely pleasant elderly white female in no acute distress. Son at bedside HEENT: PERRLA, EOMI. No scleral icterus or conjunctival pallor. No lid lag or facial droop. CARDIOVASCULAR: Regular rate and rhythm. No obvious murmurs to auscultation. No chest tenderness to palpation. RESPIRATORY: No obvious rhonchi or wheezing. Clear to auscultation. Breath sounds equal bilaterally. GASTROINTESTINAL: Abdomen soft, non-tender, nondistended. BS normal. MUSCULOSKELETAL: Extremities without clubbing, cyanosis, or edema. No obvious deformities. NEUROLOGICAL: Awake, alert and oriented x4. No focal neurologic deficits. Moving both upper and lower extremities spontaneously. Results - Labs CBC & Chem 7: 07/17/18 21:15 07/17/18 21:15 Labs: Short CBC 07/17/18 Range/Units 21:15 WBC 8.9 (4.0-11.0) th/mm3 Hgb 13.5 (11.6-15.3) gm/dL Hct 41.1 (35.0-46.0) % Plt Count 204 (150-450) th/mm3 BMP 07/17/18 21:15 Sodium 146 H Potassium 3.4 L Chloride 112 H Carbon Dioxide 25.3 BUN 16 Creatinine 0.84 Calcium 7.5 L Cardiac Enzymes 07/17/18 Range/Units 21:15 Troponin I 0.02 (0.02-0.05) ng/mL Liver Function 07/17/18 Range/Units 21:15 Total Bilirubin 0.4 (0.2-1.0) mg/dL AST 33 (15-37) U/L ALT 46 (10-53) U/L Alkaline Phosphatase 132 H (45-117) U/L Albumin 3.1 L (3.4-5.0) g/dL Urine 07/17/18 Range/Units 21:40 Urine Color Yellow (Yellw/Straw) Urine Clarity Hazy H (Clear) Urine pH 7.0 (5.0-8.5) Ur Specific Louise 1.005 (1.002-1.035) Urine Protein Negative (Neg-Trace) mg/dL Urine Glucose (UA) Negative (Negative) mg/dL - Imaging Impressions Head CT 07/17/18 21:10 CONCLUSION: 1. Central atrophy with enlargement of the ventricles and chronic ischemic white matter changes. 2. Stable evaluation without evidence of acute infarct, hemorrhage, mass or edema. . Chest X-Ray 07/17/18 21:11 CONCLUSION: No evidence of acute cardiopulmonary process. Caprini VTE Risk Assessment Caprini VTE Risk Assessment: No/Low Risk (score <= 1) Caprini Risk Assessment Model: Point Value = 1 Point Value = 2 Point Value = 3 Point Value = 5 Age 41-60 Minor surgery BMI > 25 kg/m2 Swollen legs Varicose veins or History of unexplained or recurrent spontaneous Oral contraceptives or hormone replacement Sepsis (< 1 month) Serious lung disease, including pneumonia (< 1 month) Abnormal pulmonary function Acute myocardial infarction Congestive heart failure (< 1 month) History of inflammatory bowel disease Medical patient at bed rest Age 61-74 Arthroscopic surgery Major open surgery (> 45 min) Laparoscopic surgery (> 45 min) Malignancy Confined to bed (> 72 hours) Immobilizing plaster cast Central venous access Age >= 75 History of VTE Family history of VTE Factor V Leiden Prothrombin [id number] Lupus anticoagulant Anticardiolipin antibodies Elevated serum homocysteine Heparin-induced thrombocytopenia Other congenital or acquired thrombophilia Stroke (< 1 month) Elective arthroplasty Hip, pelvis, or leg fracture Acute spinal cord injury (< 1 month) Prophylaxis Regimen: Total Risk Factor Score Risk Level Prophylaxis Regimen 0-1 Low Early ambulation 2 Moderate Order ONE of the following: *Sequential Compression Device (SCD) *Heparin 5000 units SQ BID 3-4 Higher Order ONE of the following medications: *Heparin 5000 units SQ TID *Enoxaparin/Lovenox 40 mg SQ daily (WT < 150 kg, CrCl > 30 mL/min) *Enoxaparin/Lovenox 30 mg SQ daily (WT < 150 kg, CrCl > 10-29 mL/min) *Enoxaparin/Lovenox 30 mg SQ BID (WT < 150 kg, CrCl > 30 mL/min) AND/OR *Sequential Compression Device (SCD) 5 or more Highest Order ONE of the following medications: *Heparin 5000 units SQ TID (Preferred with Epidurals) *Enoxaparin/Lovenox 40 mg SQ daily (WT < 150 kg, CrCl > 30 mL/min) *Enoxaparin/Lovenox 30 mg SQ daily (WT < 150 kg, CrCl > 10-29 mL/min) *Enoxaparin/Lovenox 30 mg SQ BID (WT < 150 kg, CrCl > 30 mL/min) AND *Sequential Compression Device (SCD) Assessment and Plan - Assessment (1) Syncope Code(s): R55 - Syncope and collapse Status: Acute (2) Lactic acidosis Code(s): E87.2 - Acidosis Status: Acute (3) DNR (do not resuscitate) Code(s): Z66 - Do not resuscitate Status: Acute - Plan A/P: 1. Syncope: likely vasovagal from dehydration, BP 70's upon EMS arrival, s/p IVF w/ improvement, currently back to baseline. CT Head w/ no acute findings, images reviewed. Admit for observation, check serial cardiac enzymes, telemetry , check Echo to eval for valvular abnormalities/cardiomyopathy. 2. Lactic Acidosis: Lactic Acid 3.5, no evidence of sepsis, CXR negative, U/a negative, IVF for hydration, repeat Lactic Acid now normalized to 1.7. 3. DNR: Code Status reviewed and in chart. 4. DVT Prophylaxis: SCD/Teds 5. Social work for d/c planning as needed 6. Case discussed w/ ER physician at length, labs/records/imaging reviewed by me.
[2018-07-17] MEDS: Sod Chloride 0.9% Inj 1,000 ML IV.CONT SCH (23:54)
[2018-07-18 07:30] LABS: Baso # (Auto) 0.1 th/mm3 (0.0-0.2); Eos # (Auto) 0.2 th/mm3 (0.0-0.4); Eos % (Auto) 2.2 % (0.0-4.0); Hematocrit 38.9 % (35.0-46.0); Lymph # (Auto) 1.5 th/mm3 (1.0-4.8); Lymph % (Auto) 17.1 % (9.0-44.0); Mean Corpuscular HGB Conc 33.5 % (32.0-36.0); Mean Corpuscular Hemoglobin 31.1 pg (27.0-34.0); Mean Platelet Volume 8.4 fL (7.0-11.0); Mono # (Auto) 0.6 th/mm3 (0.0-0.9); Mono % (Auto) 6.2 % (0.0-8.0); Neut # (Auto) 6.6 th/mm3 (1.8-7.7); Neut % (Auto) 73.5 % (16.0-70.0); Platelet Count 183 th/mm3 (150-450); Red Blood Count 4.18 mil/mm3 (4.00-5.30); Red Cell Distribution Width 13.1 % (11.6-17.2); White Blood Count 8.9 th/mm3 (4.0-11.0)
[2018-07-18 07:55] LABS: Alanine Aminotransferase 40 U/L (10-53); Albumin 2.8 g/dL (3.4-5.0); Anion Gap 12 meq/L (5-15); Aspartate Aminotransferase 29 U/L (15-37); Blood Urea Nitrogen 12 mg/dL (7-18); Calcium 7.6 mg/dL (8.5-10.1); Carbon Dioxide 23.2 meq/L (21.0-32.0); Chloride 110 meq/L (98-107); Glomerular Filtration Rate 71 mL/min (>89); Glucose,Random 122 mg/dL (74-106); Potassium 3.4 meq/L (3.5-5.1); Sodium 145 meq/L (136-145)
[2018-07-18 07:59] LABS: Alkaline Phosphatase 113 U/L (45-117); Total Protein 5.9 g/dL (6.4-8.2); Troponin I 0.02 ng/mL (0.02-0.05)
[2018-07-18 08:28] VITALS: PULSE 77
[2018-07-18] MEDS ORDERED: Senna/Docusate Sodium 8.6/50 MG Tablet PO SCH (09:00)
[2018-07-18] MEDS: Sod Chloride 0.9% Inj 1,000 ML IV.CONT SCH (09:53)
[2018-07-18 12:08] VITALS: BP 126/58; RESP 16; TEMP 98.2; O2SAT 98
--- NOTE | 2018-07-18 14:35 | P.PN ---
Subjective Interval history: seen with son at bedside visiting from [place] baseline uses a walker occasionally now feels great did well on further history had 3 days of loos watery stools this am and lunch ate 100% good po up and ambulated well with PT no complains Physical Exam Vital signs: Vital Signs 07/17/18 21:04 07/17/18 21:10 07/17/18 23:13 Temperature 97.6 F Pulse Rate 83 82 70 Respiratory Rate 16 16 Blood Pressure 139/78 145/66 H Pulse Oximetry 98 97 07/18/18 00:00 07/18/18 00:39 07/18/18 04:00 Temperature 97.9 F 97.9 F Pulse Rate 54 L 73 75 Respiratory Rate 16 14 14 Blood Pressure 153/70 H 167/70 H 148/70 H Pulse Oximetry 99 97 97 07/18/18 08:00 07/18/18 12:00 Temperature 98.7 F 98.2 F Pulse Rate 77 77 Respiratory Rate 14 16 Blood Pressure 131/67 126/58 L Pulse Oximetry 97 98 Intake & Output 07/17/18 07/18/18 07/18/18 18:59 06:59 18:59 Intake Total 440 / 440 900 / 900 Output Total 400 / 400 650 / 650 Balance 40 / 40 250 / 250 Weight 120 kg Intake: IV 200 / 200 900 / 900 NS Inj 1,000 ML @ 100 mls/hr IV 100 / 100 900 / 900 .CONT .Q10H [facility] Rx#:[id number] Maxipime Inj 2,000 MG In NS Inj 100 / 100 100 ML @ 200 mls/hr IV.SIG ONCE ONE Rx#:[id number] Oral 240 / 240 Output: Urine Amount (Catheter) 400 / 400 650 / 650 Indwelling Urethral Catheter 400 / 400 650 / 650 Narrative: awake and alert, oriented x 3 anicteric no nuchal rigidity lungs- no rales regular rhythm abdomen soft, nontender extrmeities no edema neuro exam - unremarkable - Urinary Catheter Management Indwelling Urethral Catheter Cath placed during this visit: yes Reason for continuing: Hourly intake/output Insertion date: 07/17/18 Insertion time: 21:40 Results - Labs CBC & Chem 7: 07/18/18 07:00 07/18/18 07:00 Laboratory Results - last 24 hr 08/25/18 08/25/18 08/25/18 21:15 21:15 21:15 WBC 8.9 RBC 4.42 Hgb 13.5 Hct 41.1 MCV 93.0 MCH 30.6 MCHC 32.9 RDW 13.3 Plt Count 204 MPV 8.5 Neut % (Auto) 77.5 H Lymph % (Auto) 13.2 Pershing % (Auto) 6.2 Eos % (Auto) 2.5 Baso % (Auto) 0.6 Neut # (Auto) 6.9 Lymph # (Auto) 1.2 Pershing # (Auto) 0.6 Eos # (Auto) 0.2 Baso # (Auto) 0.1 WBC Differential . Differential Comment Auto diff final PT 11.2 INR 1.1 APTT 24.8 D-Dimer Quant (PE/DVT) Sodium 146 H Potassium 3.4 L Chloride 112 H Carbon Dioxide 25.3 Anion Gap 9 BUN 16 Creatinine 0.84 Estimated GFR 64 L POC Glucose Random Glucose 124 H Lactic Acid Calcium 7.5 L Magnesium 1.6 Total Bilirubin 0.4 AST 33 ALT 46 Alkaline Phosphatase 132 H Troponin I 0.02 Total Protein 6.3 L Albumin 3.1 L Urine Color Urine Clarity Urine pH Ur Specific Talmage Urine Protein Urine Glucose (UA) Urine Ketones Urine Occult Blood Urine Nitrate Urine Bilirubin Urine Urobilinogen Ur Leukocyte Esterase Urine RBC Urine WBC Ur Squamous Epith Cells Amorphous Sediment Urine Bacteria Hyaline Casts Urine Mucus Micro UA Comment Ur Microscopic Review Urine Culture Comments Blood Type Blood Type Recheck Antibody Screen 07/17/18 07/17/18 07/17/18 21:15 21:15 21:15 WBC RBC Hgb Hct MCV MCH MCHC RDW Plt Count MPV Neut % (Auto) Lymph % (Auto) Pershing % (Auto) Eos % (Auto) Baso % (Auto) Neut # (Auto) Lymph # (Auto) Pershing # (Auto) Eos # (Auto) Baso # (Auto) WBC Differential Differential Comment PT INR APTT D-Dimer Quant (PE/DVT) 1.20 H Sodium Potassium Chloride Carbon Dioxide Anion Gap BUN Creatinine Estimated GFR POC Glucose Random Glucose Lactic Acid 3.5 H Calcium Magnesium Total Bilirubin AST ALT Alkaline Phosphatase Troponin I Total Protein Albumin Urine Color Urine Clarity Urine pH Ur Specific Talmage Urine Protein Urine Glucose (UA) Urine Ketones Urine Occult Blood Urine Nitrate Urine Bilirubin Urine Urobilinogen Ur Leukocyte Esterase Urine RBC Urine WBC Ur Squamous Epith Cells Amorphous Sediment Urine Bacteria Hyaline Casts Urine Mucus Micro UA Comment Ur Microscopic Review Urine Culture Comments Blood Type O Negative Blood Type Recheck Required Antibody Screen Negative 07/17/18 07/18/18 07/18/18 21:40 00:13 07:00 WBC 8.9 RBC 4.18 Hgb 13.0 Hct 38.9 MCV 93.0 MCH 31.1 MCHC 33.5 RDW 13.1 Plt Count 183 MPV 8.4 Neut % (Auto) 73.5 H Lymph % (Auto) 17.1 Pershing % (Auto) 6.2 Eos % (Auto) 2.2 Baso % (Auto) 1.0 Neut # (Auto) 6.6 Lymph # (Auto) 1.5 Pershing # (Auto) 0.6 Eos # (Auto) 0.2 Baso # (Auto) 0.1 WBC Differential . Differential Comment Auto diff final PT INR APTT D-Dimer Quant (PE/DVT) Sodium Potassium Chloride Carbon Dioxide Anion Gap BUN Creatinine Estimated GFR POC Glucose Random Glucose Lactic Acid 1.7 Calcium Magnesium Total Bilirubin AST ALT Alkaline Phosphatase Troponin I Total Protein Albumin Urine Color Yellow Urine Clarity Hazy H Urine pH 7.0 Ur Specific Talmage 1.005 Urine Protein Negative Urine Glucose (UA) Negative Urine Ketones Negative Urine Occult Blood Small H Urine Nitrate Negative Urine Bilirubin Negative Urine Urobilinogen Less than 2 Ur Leukocyte Esterase Negative Urine RBC Less than 1 Urine WBC 1 Ur Squamous Epith Cells <1 Amorphous Sediment Rare H Urine Bacteria Few H Hyaline Casts 1 Urine Mucus Few H Micro UA Comment Cath-culture not ind Ur Microscopic Review Not Reportable Urine Culture Comments Cath-cult not ind Blood Type Blood Type Recheck Antibody Screen 07/18/18 07/18/18 07/18/18 07:00 07:00 12:45 WBC RBC Hgb Hct MCV MCH MCHC RDW Plt Count MPV Neut % (Auto) Lymph % (Auto) Pershing % (Auto) Eos % (Auto) Baso % (Auto) Neut # (Auto) Lymph # (Auto) Pershing # (Auto) Eos # (Auto) Baso # (Auto) WBC Differential Differential Comment PT INR APTT D-Dimer Quant (PE/DVT) Sodium 145 Potassium 3.4 L Chloride 110 H Carbon Dioxide 23.2 Anion Gap 12 BUN 12 Creatinine 0.77 Estimated GFR 71 L POC Glucose 182 H Random Glucose 122 H Lactic Acid Calcium 7.6 L Magnesium Total Bilirubin 0.4 AST 29 ALT 40 Alkaline Phosphatase 113 Troponin I 0.02 Cancelled Total Protein 5.9 L Albumin 2.8 L Urine Color Urine Clarity Urine pH Ur Specific Talmage Urine Protein Urine Glucose (UA) Urine Ketones Urine Occult Blood Urine Nitrate Urine Bilirubin Urine Urobilinogen Ur Leukocyte Esterase Urine RBC Urine WBC Ur Squamous Epith Cells Amorphous Sediment Urine Bacteria Hyaline Casts Urine Mucus Micro UA Comment Ur Microscopic Review Urine Culture Comments Blood Type Blood Type Recheck Antibody Screen Microbiology 07/17/18 21:15 Blood - Peripheral Aerobic Blood Culture - Preliminary No growth in 1 day 07/17/18 21:15 Blood - Peripheral Anaerobic Blood Culture - Preliminary No growth in 1 day 07/17/18 21:25 Blood - Peripheral Aerobic Blood Culture - Preliminary No growth in 1 day 07/17/18 21:25 Blood - Peripheral Anaerobic Blood Culture - Preliminary No growth in 1 day - Imaging Impressions Head CT 07/17/18 21:10 CONCLUSION: 1. Central atrophy with enlargement of the ventricles and chronic ischemic white matter changes. 2. Stable evaluation without evidence of acute infarct, hemorrhage, mass or edema. . Chest X-Ray 07/17/18 21:11 CONCLUSION: No evidence of acute cardiopulmonary process. Assessment and Plan - Assessment (1) Syncope Code(s): R55 - Syncope and collapse Status: Acute (2) Lactic acidosis Code(s): E87.2 - Acidosis Status: Acute (3) DNR (do not resuscitate) Code(s): Z66 - Do not resuscitate Status: Acute - Plan 89 years old Syncope: likely vasovagal from dehydration, BP 70's upon EMS arrival, s/p IVF w / improvement, currently back to baseline. - per patient and son - had diarrhea for 3 days prior to this now improved -good po, good BM - head CT negative - cancel 2 d echo Hypokalemia - replaced with po KCL x 1 now - 10 meq KCL po daily x 2 days = recheck BMP in 2 days History of hypertension- on OP meds- on Cozaar 50 mg daily BP good - hold Cozaar for now - continue to monitor at facility- - if needed start at a lower dose Lactic Acidosis: resolved - Lactic Acid 3.5, no evidence of sepsis, CXR negative, U/a negative, resolved DNR: Code Status reviewed and in chart. DVT Prophylaxis: SCD/Teds DC home today OP ff up with PCP hjome with po KCL x 2 days recheck BMP as OP through PCP D/w son-
--- NOTE | 2018-07-18 20:28 | ECG ---
Date Performed: 07/18/2018 Time Performed: 11:53:33 PTAGE: 88 years EKG: Sinus rhythm WITH SINUS ARRHYTHMIA NONSPECIFIC T-WAVE ABNORMALITY BORDERLINE ECG PREVIOUS TRACING : 07/17/2018 21.12 Since the previous tracing, no significant change noted DOCTOR: Marquis Sánchez Interpretating Date/Time 07/18/2018 20:26:42
[2018-07-19] MEDS ORDERED: Potassium Chloride 10 MEQ ER Capsule PO SCH (09:00)
--- NOTE | 2018-07-19 09:35 | ECG ---
Date Performed: 07/17/2018 Time Performed: 21:12:29 PTAGE: 88 years EKG: Likely Sinus rhythm with small Pwaves likely bearing artifact NONSPECIFIC T-WAVE ABNORMALITY BORDERLINE ECG Repeat EKG r ecommended PREVIOUS TRACING : 08/29/2003 15.15 DOCTOR: Andreas Winston Interpretating Date/Time 07/19/2018 09:33:02
== END 2018-07-18 16:40 ==
LOC: NEDA 20:57 → NEPC 20:57 → NEPGCP 07-18 00:29
PROVIDERS: ADMIT Internal Medicine; ATTEND Internal Medicine